=== PATIENT | male | born 1955 | race African-American/Black ===

== ENCOUNTER 2022-12-25 13:45 | Emergency (ER) | payer MEDICARE ==
[~2022-12-25] VITALS: Ht 175.3 cm; Wt 60.0 kg
[~2022-12-25 13:45] MED LIST: HYDROCODONE; SOMA
[2022-12-25] MEDS ORDERED: METOPROLOL TARTRATE 5MG/5ML VIAL IV ONE (14:15)
[2022-12-25 15:07] LABS: HEMATOCRIT. 43.5 % (42.0-52.0); HEMOGLOBIN. 15.1 g/dL (14.0-18.0); MEAN CORPUSCULAR HEMOGLOBIN 32.4 pg (28.0-32.0); MEAN CORPUSCULAR VOLUME 93.3 fL (80.0-94.0); MEAN PLATELET VOLUME 8.3 fl (7.4-10.4); PLATELET 356 x1000/uL (130-400); RED BLOOD CELL COUNT 4.66 mill/uL (4.7-6.1); RED CELL DISTRIBUTION WIDTH 13.9 % (11.6-14.6)
[2022-12-25 15:14] LABS: CHLORIDE 105 mEq/L (98-107)
[2022-12-25 16:17] LABS: PLATELET ESTIMATE NORMAL
[2022-12-25] MEDS ORDERED: HYDROCODONE/ACETAMINOPHEN 5/325MG TABLET PO ONE (16:30)
[2022-12-25] MEDS ORDERED: AMIODARONE HCL 200 MG TABLET PO SCH (17:00)
[2022-12-25] MEDS ORDERED: APIXABAN 5 MG TABLET PO SCH (17:00)
[2022-12-25 18:30] VITALS: BP 147/106
[2022-12-25] MEDS ORDERED: AMIO400T11 PO (18:35)
[2022-12-25] MEDS ORDERED: APIX5TAB MT (18:35)
[2022-12-25] MEDS ORDERED: CLONIDINE 0.1MG TABLET PO PRN (19:00)
[2022-12-25] MEDS ORDERED: ONDANSETRON HCL 4MG/2ML INJ IV PRN (19:00)
[2022-12-25] MEDS ORDERED: ACETAMINOPHEN 325MG TABLET PO PRN (19:00)
[2022-12-25] MEDS ORDERED: DIPHENHYDRAMINE 50MG/ML VIAL IV PRN (19:00)
[2022-12-25] MEDS ORDERED: IPRATROPIUM/ALBUTEROL 0.5-3(2.5)MG/3ML NEB HHN PRN (19:00)
== END 2022-12-25 19:00 | disposition home or self-care (01) ==
LOC: ER 14:00
DX: I48.0 Paroxysmal atrial fibrillation (principal); I25.10 Atherosclerotic heart disease of native coronary artery without angina pectoris; R00.0 Tachycardia, unspecified; M54.2 Cervicalgia
CPT/HCPCS: 36415; 71045; 72125; 80053; 83880; 84443; 84484; 85025; 93005; 96374; 99285; J3490